=== PATIENT | female | born 1995 | race Caucasian/White ===

== ENCOUNTER 2019-01-18 16:35 | Emergency (ER) | payer OTHER ==
[2019-01-18 17:10] VITALS: BP 137/75
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
[2019-01-18] MEDS: KETOROLAC TROMETHAMINE 60 MG/2 ML VIAL IM ONE ×2 (18:30→18:33)
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
== END 2019-01-18 20:06 | disposition home or self-care (01) ==
LOC: ED 16:35
DX: S92.321A Displaced fracture of second metatarsal bone, right foot, initial encounter for closed fracture (principal); S92.331A Displaced fracture of third metatarsal bone, right foot, initial encounter for closed fracture; S92.341A Displaced fracture of fourth metatarsal bone, right foot, initial encounter for closed fracture; S92.221A Displaced fracture of lateral cuneiform of right foot, initial encounter for closed fracture; S92.241A Displaced fracture of medial cuneiform of right foot, initial encounter for closed fracture; V43.92XA Unspecified car occupant injured in collision with other type car in traffic accident, initial encounter; Y93.89 Activity, other specified; Y92.410 Unspecified street and highway as the place of occurrence of the external cause
CPT/HCPCS: 29515; 73610; 73630; 73700; 81025; 96372; 99284; 99285; J1885

== ENCOUNTER 2019-01-19 15:18 | Outpatient (CLI) | payer OTHER ==
[2019-01-18 17:10] VITALS: BP 137/75
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
== END 2019-01-19 15:20 ==
LOC: POD 15:18
PROVIDERS: ATTEND Podiatrist Foot & Ankle Surgery
DX: S92.321A Displaced fracture of second metatarsal bone, right foot, initial encounter for closed fracture (principal); S92.331A Displaced fracture of third metatarsal bone, right foot, initial encounter for closed fracture; S92.344A Nondisplaced fracture of fourth metatarsal bone, right foot, initial encounter for closed fracture; V49.3XXA Car occupant (driver) (passenger) injured in unspecified nontraffic accident, initial encounter; Y92.89 Other specified places as the place of occurrence of the external cause
CPT/HCPCS: 29405; 73630; 99204; A4554

== ENCOUNTER 2019-01-23 14:17 | Outpatient (CLI) | payer OTHER ==
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
== END 2019-01-23 14:19 ==
LOC: POD 14:17
PROVIDERS: ATTEND Podiatrist Foot & Ankle Surgery
DX: S92.324A Nondisplaced fracture of second metatarsal bone, right foot, initial encounter for closed fracture (principal); S92.334A Nondisplaced fracture of third metatarsal bone, right foot, initial encounter for closed fracture; S92.344A Nondisplaced fracture of fourth metatarsal bone, right foot, initial encounter for closed fracture; V49.3XXA Car occupant (driver) (passenger) injured in unspecified nontraffic accident, initial encounter; Y93.9 Activity, unspecified; Y92.89 Other specified places as the place of occurrence of the external cause; Z01.812 Encounter for preprocedural laboratory examination
CPT/HCPCS: 99213

== ENCOUNTER 2019-01-23 16:11 | Outpatient (CLI) | payer OTHER ==
[2019-01-23 17:47] LABS: eGFR (Non-African) > 60
[2019-01-23 18:14] LABS: BASOPHILS % 1.1 (0.0-1.5); EOSINOPHILS % 3.9 % (0.0-6.8); MONOCYTES % 2.7 % (0.0-11.0); NEUTROPHILS # 6.8 # k/uL (1.4-7.7)
== END 2019-01-23 16:13 ==
LOC: LAB 16:11
PROVIDERS: ATTEND Podiatrist Foot & Ankle Surgery
DX: S92.324A Nondisplaced fracture of second metatarsal bone, right foot, initial encounter for closed fracture (principal); Z01.812 Encounter for preprocedural laboratory examination; Z32.02 Encounter for pregnancy test, result negative
CPT/HCPCS: 36415; 80048; 81025; 85025